=== PATIENT | male | born 1940 | race Hispanic/Latino ===

== ENCOUNTER 2018-09-23 16:23 | Inpatient (IN) | payer MEDICARE ==
[~2018-09-23] VITALS: Ht 165.1 cm; Wt 52.3 kg
--- OUTSIDE RECORDS SUMMARY | 2018-09-23 16:26 | XMS REPORT | Summary of Care ---
Author Author ANH PARSON M.D. Unknown Address [facility] Phone Unavailable Care Team Providers Care Color Checker Name Role Phone ANH PARSON M.D. 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 (444.22, I74.3) Status: Active Bed sore on heel, left, unstageable (707.07, L89.620) Status: Active 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, 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) Status: Active Hypercholesteremia (272.0, E78.00) Status: Active Medications Name Dates Details Carvedilol TABS Active Lasix TABS * Refills: 0 Active Meloxicam TABS * Refills: 0 Active metFORMIN HCl TABS * Refills: 0 Active Nitroglycerin SUBL * Refills: 0 Active [place] TABS * Refills: 0 Active [place] 3 CAPS * Refills: 0 Active Plavix TABS * Refills: 0 Active Potassimin TABS * Refills: 0 Active Requip XL TB24 * Refills: 0 Active Simvastatin TABS * Refills: 0 Active Testosterone Cypionate SOLN * Refills: 0 Active Tylenol with Codeine #3 TABS * Refills: 0 Active Allergies and Adverse Reactions Name Dates Details No Known Drug Allergies (Allergy) Status: Active Past Medical History Name Dates Details History of gout (V12.29, Z87.39) Status: Resolved History of hypertension (V12.59, Z86.79) Status: Resolved History of Postoperative examination (V67.00, Z09) Status: Resolved Past myocardial infarction (412, I25.2) Status: Resolved Procedures Procedure Dates Details CVRAD - AMOL - 29253 Date: 01-Sep-2018 History of Lower extremity amputation Completed History of Arterial angioplasty of lower extremity Completed History of Arterial angioplasty of lower extremity Completed History of Amputation Of Leg Below Knee Completed History of Foot Surgery Completed Immunization Name Dates Details Immunizations not documented Social History Name Dates Details - Status: Name Dates Details Former smoker Vital Signs Date Test Result Details No Known Vitals to report Results Date Description Value Details Results not documented Plan of Care Name Dates Details Planned Observations Planned Goals not documented Planned Encounters Appointment; ANH PARSON M.D. On: 13-Oct-2018 8:45 Interventions Provided Instructions* Patient Specific Education Given; Done: 01 Sep 2018 Plan* Reviewed the following results today: * LE Arterial Doppler (Dated 08/18/2018) * I evaluated Mr. Brothers today for a non-healing wound on the LLE. The left toe wound is showing improvement and I explained that the study shows he has good circulation with some small vessel disease. * Recommend that he F/U with his podiatry (set up appointment with Dr. Ross). * And, he can F/U with me in 6 weeks. Instructions Name Dates Details Instructions not documented Encounters Appointment; ANH PARSON M.D. Encounter Diagnosis: Problem not documented On: 08-Jun-2018 12:00 Appointment; ANH PARSON M.D. Encounter Diagnosis: Problem not documented On: 16-Jun-2018 14:15 Appointment; ANH PARSON M.D. Encounter Diagnosis: Problem not documented On: 07-Jul-2018 9:30 Appointment; ANH PARSON M.D. Encounter Diagnosis: Problem not documented On: 28-Jul-2018 10:30 Appointment; VASCULAR, SE Encounter Diagnosis: Problem not documented On: 01-Sep-2018 8:00 Appointment; ANH PARSON M.D. Encounter Diagnosis: Problem not documented On: 01-Sep-2018 9:00
--- NOTE | 2018-09-23 18:35 | NUR ---
PATIENT TO ROOM 4
[2018-09-23] MEDS ORDERED: SODIUM CHLORIDE 0.9% 250ML 250 ML IV ONE (18:45)
--- NOTE | 2018-09-23 19:26 | Diagnostic Imaging Report ---
A single frontal view of the chest. HISTORY: LOW H/H, blood transfusion COMPARISON: None available. DISCUSSION: Portable technique, limits sensitivity of the exam. Overlying monitoring leads. Additional overlying artifacts. Tubes/Lines: None Lungs and pleura: Low lung volumes result in bibasilar vascular crowding, accentuation of the pulmonary interstitial markings, central pulmonary vasculature, and the cardiac silhouette. Allowing for these limitations, the findings are as follows: Mild left basilar atelectasis versus scarring. No evidence of a consolidative pneumonia or pulmonary alveolar edema. No definite pleural effusion or pneumothorax is identified. Heart and mediastinum: The cardiomediastinal silhouette appears unremarkable. Bones and soft tissues: Appear unremarkable, given this limited exam. IMPRESSION: 1. Mild left basilar atelectasis versus scarring. 2. Otherwise, no acute radiographic abnormality. Signed by: Dr. Fernando Parry D.O., M.M.M. on 09/23/2018 7:23 PM
[2018-09-23] MEDS ORDERED: LEVOTHYROXINE50 MCG PO (20:07)
[2018-09-23] MEDS ORDERED: AMLODIPINE BESY10 MG PO (20:07)
[2018-09-23] MEDS ORDERED: FAMOTIDINE20 MG PO (20:07)
[2018-09-23] MEDS ORDERED: METOPROLOL TART25 MG PO (20:07)
[2018-09-23] MEDS ORDERED: CLONIDINE HCL0.1 MG PO (20:07)
[2018-09-23] MEDS ORDERED: HYDROCHLOROTHIA25 MG PO (20:07)
[2018-09-23] MEDS ORDERED: LEVOTHYROXINE0.5 GM (20:07)
[2018-09-23] MEDS ORDERED: VENLAFAXINE H37.5 M2 PO (20:07)
[2018-09-23 20:14] LABS: BASOPHILS % 0.3 % (0.0-1.0); EOSINOPHILS # (AUTO) 0.1 (0.0-0.4); HEMATOCRIT 23.9 % (38.2-49.6); LYMPHOCYTES # (AUTO) 2.3 (1.0-3.2); LYMPHOCYTES % 16.3 % (18.0-39.1); MEAN CORPUSCULAR HEMOGLOBIN 30.4 pg (28-32); MEAN CORPUSCULAR HGB CONC 33.5 g/dL (31-35); MEAN CORPUSCULAR VOLUME 90.9 fL (81-99); MONOCYTES % 7.4 % (4.4-11.3); NEUTROPHILS # (AUTO) 10.3 (2.1-6.9); NEUTROPHILS % 73.1 % (38.7-80.0); PLATELET COUNT 364 x10e3/uL (140-360); RED BLOOD COUNT 2.63 x10e6/uL (4.3-5.7)
[2018-09-23 20:25] LABS: INR 0.92; PROTHROMBIN TIME 12.9 seconds (11.9-14.5)
[2018-09-23 20:26] LABS: PARTIAL THROMBOPLASTIN TIME 26.8 seconds (23.8-35.5)
[2018-09-23 20:33] LABS: ALBUMIN 2.7 g/dL (3.5-5.0); ALBUMIN/GLOBULIN RATIO 0.6 (0.8-2.0); ANION GAP 14.3 mmol/L (8-16); CALCIUM 9.1 mg/dL (8.4-10.2); CREATININE, SERUM 1.8 mg/dL (0.72-1.25); MAGNESIUM 2.2 MG/DL (1.3-2.1); POTASSIUM 3.3 mmol/L (3.5-5.1)
[2018-09-23 20:39] LABS: CREATINE KINASE MB 0.7 ng/mL (0-5.0)
[2018-09-23 21:15] LABS: FERRITIN 995.05 ng/mL (21.81-274.66)
[2018-09-23] MEDS ORDERED: SODIUM CHLORIDE FLUSH 10 ML SYR INJ PRN (21:15)
[2018-09-23] MEDS ORDERED: ONDANSETRON HCL INJ 2MG/ML 2ML 2 MG/ML VIAL IV PRN (21:15)
[2018-09-23 21:18] LABS: FOLATE 11.1 ng/mL (7.0-15.4)
--- OUTSIDE RECORDS SUMMARY | 2018-09-23 21:32 | XMS REPORT ---
Author Author [facility] Address Unknown Phone Unavailable Care Team Providers Care Biochemistry Teacher Name Role Phone Hakeem PALENCIA Unavailable Unavailable Problems This patient has no known problems. Allergies, Adverse Reactions, Alerts This patient has no known allergies or adverse reactions. Medications This patient has no known medications. Results Test Description Test Time Test Comments Text Results Atomic Results Result Comments CHEST SINGLE (PORTABLE) 2018-09-23 19:21:00 [place] [address] Patient Name: MARILUZ [place] MR #: [id number] : 1940 Age/Sex: 78/M Req #: [id number] Adm Physician: Ordered by: KEVLIN PALENCIA MD Report #: [id number] Location: ER Room/Bed: Procedure: [id number] DX/CHEST SINGLE (PORTABLE) Exam Date: 09/23/18 Exam Time: 1905 REPORT STATUS: Signed A single frontal view of the chest. HISTORY: LOW H/H, blood transfusion COMPARISON: None available. DISCUSSION: Portable technique, limits sensitivity of the exam. Overlying monitoring leads. Additional overlying artifacts. Tubes/Lines: None Lungs and pleura: Low lung volumes result in bibasilar vascular crowding, accentuation of the pulmonary interstitial markings, central pulmonary vasculature, and the cardiac silhouette. Allowing for these limitations, the findings are as follows: Mild left basilar atelectasis versus scarring. No evidence of a consolidative pneumonia or pulmonary alveolar edema. No definite pleural effusion or pneumothorax is identified. Heart and mediastinum: The cardiomediastinal silhouette appears unremarkable. Bones and soft tissues: Appear unremarkable, given this limited exam. IMPRESSION: 1. Mild left basilar atelectasis versus scarring. 2. Otherwise, no acute radiographic abnormality. Signed by: Dr. Porter Parry D.O., M.M.M. on 09/23/2018 7:23 PM Dictated By: PORTER PARRY DO 22 Transcribed By: HECTOR on 09/23/181922 COPY TO: KELVIN PALENCIA MD
--- NOTE | 2018-09-23 22:30 | NUR ---
Patient transferred from ER via stretcher. Patient is A&Ox4, respirations even & unlabored, no distress noted. Patient has R BKA. R AC 20g SL, patent & no infiltration noted. Reminded patient NPO status after midnight, voiced understanding. Stage II pressure ulcer noted to sacrum. Wound care consult placed. Patient has an ulcer to left 5th toe. Call light within reach, side railsx2 raised & bed set to lowest position.
[2018-09-23 22:35] LABS: CLARITY,URINE CLEAR (CLEAR); COLOR,URINE STRAW (YELLOW)
[2018-09-23 22:36] LABS: BILIRUBIN,URINE NEGATIVE (NEGATIVE); KETONES,URINE NEGATIVE (NEGATIVE); LEUKOCYTE ESTERASE ,URINE NEGATIVE (NEGATIVE); NITRITE,URINE NEGATIVE (NEGATIVE); PROTEIN,URINE DIPSTICK 1+ (NEGATIVE); URINE UROBILINOGEN 0.2 mg/dL (0.2 - 1)
[2018-09-23 23:00] VITALS: BP 145/67
[2018-09-23 23:17] LABS: BACTERIA,URINE RARE /HPF; EPITHELIAL CELLS,URINE RARE /LPF; RBC,URINE 0-5 /HPF (0-5)
[2018-09-23] MEDS ORDERED: SODIUM CHLORIDE 0.9% 250ML 250 ML ONE (23:40)
[2018-09-24] VITALS (9 sets, daily range): BP systolic 137–163; BP diastolic 64–81
[2018-09-24] MEDS: FUROSEMIDE INJ 10 MG/ML 2 ML VIAL IV PRN ×2 (03:00→06:50)
[2018-09-24] MEDS ORDERED: SODIUM CHLORIDE 0.9% 250ML 250 ML ONE (03:22)
--- NOTE | 2018-09-24 03:30 | NUR ---
Patient had large watery BM Addendum: 09/25/18 at 0644 by MIKKI ZURITA RN Please omit, made in error
--- NOTE | 2018-09-24 06:31 | NUR ---
H&P PCP: Nii Bruce MD cc; fatigue HPI: 78yoM, with hx of anemia requiring transfusion, now with Hb 7.2 in clinic, sent to hospital for transfusion and workup. Pt states that he has been having melena. PMH: HTN, hypothyroidism, Mood d/o, CKD3 PShx: right BKA allergies; see emr FH/SH; ; sister involved in care; meds; see MAR ROS: no f/c/s/N/v/D/BATRES/vision changes/skin rash/back pain v/s; revd P:E tired appearing anicteric ns1s2 mod bs soft nt nd right BKA well healed; left foot 5th digit ulcer-healing skin dry flat affect alert; oriented x2 labs/med; revd A/P: 78yoM Iron deficiency anemia Vit B12 deficiency Hypokalemima Metabolic acidosis CKD3 HTn Hypothyroidism Foot ulcer- left foot 5th digit PLAN iron replacement; B12 replacement GI consult; IV PPI podiatry consult Renal U/S. SCd Nii Bruce MD, PhD
[2018-09-24] MEDS: LEVOTHYROXINE SODIUM 50 MCG TAB PO SCH (07:00)
[2018-09-24] MEDS: FERROUS SULFATE 325 MG TAB PO SCH ×2 (08:00→17:05)
[2018-09-24] MEDS: AMLODIPINE BESYLATE 10 MG TAB PO SCH (09:00)
[2018-09-24] MEDS: VENLAFAXINE HCL 37.5MG XR CAP PO SCH ×2 (09:00→17:05)
[2018-09-24] MEDS: METOPROLOL TARTRATE 25 MG TAB PO SCH ×2 (09:00→17:05)
[2018-09-24] MEDS: CLONIDINE HCL 0.1 MG TAB PO SCH ×4 (09:00→21:08)
[2018-09-24] MEDS: CYANOCOBALAMIN 1,000 MCG TAB PO SCH (09:00)
--- NOTE | 2018-09-24 09:34 | NUR ---
PAGED DR. MORE AT THIS TIME REGARDING NEW CONSULT. REQUESTED CALL BACK FOR DIET ORDERS. AWAITING CALL BACK.
[2018-09-24] MEDS: PANTOPRAZOLE 40 MG 10ML VIAL IV SCH (10:01)
--- NOTE | 2018-09-24 10:11 | Diagnostic Imaging Report ---
EXAMINATION: Renal ultrasound. CLINICAL HISTORY :Chronic kidney disease COMPARISON: <None available.> TECHNIQUE: Grayscale and color Doppler evaluation of the kidneys and bladder was performed in transverse and longitudinal planes. DISCUSSION: RIGHT KIDNEY: The right kidney measures 8.7 cm in length and shows normal renal cortical echogenicity. No hydronephrosis, shadowing calculi or solid mass lesions. LEFT KIDNEY: The left kidney measures 8.5 cm in length and shows normal renal cortical echogenicity. No hydronephrosis, shadowing calculi or solid mass lesions. Exophytic simple cyst projects from the lower pole and measures 1.2 x 1 x 1.2 cm. BLADDER: Unremarkable. Right and left ureteral jets are identified. IMPRESSION: Benign simple left renal cyst. Otherwise unremarkable sonographic appearance of the kidneys. Signed by: Dr. Alex Denny M.D. on 09/24/2018 10:08 AM
[2018-09-24] MEDS ORDERED: PEG (High)/E-LYTE SOLN 4,000 ML BTL PO NR (12:00)
--- NOTE | 2018-09-24 13:14 | NUR ---
NOTIFIED DR. LEZAMA REGARDING PT CAREGIVER REFUSING ANY CARE DONE TO LEFT 5TH DIGIT FOOT ULCER. CAREGIVER STATES SHE HAS BEEN TAUGHT HOW TO DO DRESSING CHANGES AND SHE WILL TAKE CARE OF IT. SHE STATES SHE DOES NOT WANT ANY NEW DOCTORS TO CHANGE MEDICATIONS THAT ARE APPLIED TO IT. SHE IS AFRAID THE PT WILL NEED AMPUTATION IF CHANGES ARE MADE. PER DR. TEJA KEANECEL CONSULT FOR DR. GONSALES. SPOKE TO DR. GONSALES TO NOTIFY CANCELATION BUT HE STATES HE STILL WOULD LIKE TO SEE THE PT AND SPEAK WITH THE CAREGIVER TO ADDRESS ANY WORRIES THEY MAY HAVE. PER DR. GONSALES HE WILL SEE PT LATER TODAY AND SPEAK TO CAREGIVER.
[2018-09-24 14:03] LABS: HEMATOCRIT 29.9 % (38.2-49.6); HEMOGLOBIN 10.5 g/dL (14.0-18.0)
--- NOTE | 2018-09-24 14:24 | NUR ---
WOUND CARE CONSULTATION: INITIAL EVALUATION Patient admitted from home to ER for HGB of 7. HX: Hypotension LABS: WBC:14.3 HCT23.9 TBG226 ALB2.7 WC Consulted for evaluation of sacral ulcer. PATIENT VISIT: Patient Luxembourgish speaking, family members at bedside. Diapered. HX: Right BKA Left foot dressing in place. CDI performed by family. Family refused assessment of foot ulcers. States to be treating with Santyl daily and is being cared for at [facility] outpatient wound care center. States patient did not admit for foot ulcer management and they would prefer to continue caring for ulcer. Education provided but still preferred to continue taking care of ulcers on their own. Sacral area- family okay to assess area for ulcers. No Pressure Ulcers noted. Old scar tissue present with blanchable erythema. No Open Skin Noted. Sherman Score 15 Moderate PUP Active Visco Mattress in Place Discussed patient care at length with family for pressure ulcer prevention, approximately 30 minutes spent. IMPRESSION: 1. Sacral- Blanchable Erythema( No open skin) 2. Left Foot Ulcer - Unable to Assess. Deferred Assessment per family request. RECOMMENDATION: 1. Sacral- Blanchable Erythema( No open skin) - Cleanse area with mild soap and water then pat dry thoroughly - Apply Dean Cream then cover with Allevyn Foam Sacrum Dressing q12h and PRN Soiling 2. Alternating Pressure Air Mattress and set to patient current weight. 3. Left Foot Heel protector while in bed. 4. Turn and reposition every 2 hours using turning schedule clock. 5. Continue Moderate PUP Thank you for Consulting with Wound Care. Addendum: 09/24/18 at 1435 by Dillon Rosen RN Amended: Links added.
[2018-09-24] MEDS: ZINC OXIDE / BALSAM PERU 30 GM TUBE TOP SCH ×2 (14:45→21:09)
--- NOTE | 2018-09-24 16:05 | Consultation ---
DATE OF CONSULTATION: Gastroenterology Consultation REASON FOR CONSULTATION: Anemia. HISTORY OF PRESENT ILLNESS: Mr. Brothers is a 78-year-old gentleman with below past medical history. He comes in with weakness and significant anemia. He also has leukocytosis. His iron studies are consistent with a mixed picture of anemia of iron deficiency and chronic disease. He and his family deny any overt bleeding. He has been quite debilitated since his lower extremity amputation earlier this year. He denies any abdominal pain. He has had no nausea or vomiting. He does eat at home. He is primarily dependent, but does take care of him. PAST MEDICAL HISTORY: Hypertension, chronic kidney disease, peripheral arterial disease, status post right BKA. MEDICATIONS: Reviewed, please see [facility] medication reconciliation form. ALLERGIES: REVIEWED, PLEASE SEE [facility] MEDICATION RECONCILIATION FORM. SOCIAL HISTORY: No tobacco, alcohol, or illicit substances. He lives with family and is dependent. FAMILY HISTORY: Positive for hypertension, diabetes, and coronary artery disease. REVIEW OF SYSTEMS: From the patient is not obtainable due to his baseline mental status; however, they deny any other acute complaints. PHYSICAL EXAMINATION: GENERAL: He is alert, lying in bed, in no acute distress. HEENT: Pupils are equal, round, and reactive to light. He is anicteric. He has pterygium. He had pale conjunctiva. NECK: Supple. LUNGS: Clear. CARDIOVASCULAR: S1, S2. ABDOMEN: Soft, nontender, nondistended with normal bowel sounds. EXTREMITIES: No clubbing, cyanosis, or edema. He has right BKA as mentioned. PSYCH: Calm, cooperative. NEUROLOGIC: Alert. Electronic health records reviewed for laboratory and radiologic studies as well as history. ASSESSMENT: 1. Anemia, multifactorial, related to iron deficiency as well as chronic disease. 2. Debilitation and recent amputation. PLAN: At the current time, I have offered them EGD and colonoscopy. Per family, it seems he has not had this before in the past. I would recommend he undergo EGD and colonoscopy tomorrow. He will require a prep for this. Thank you very much for asking me to see Mr. Brothers. Any questions or concerns, please do not hesitate to contact me. Rosie Wagoner MD RLS/MODL /[id number] CHRISTINA
--- NOTE | 2018-09-24 17:12 | NUR ---
ATTEMPTED TO HAVE PT SIGN CONSENT FOR EGD AND COLONOSCOPY AT THIS TIME BUT PT REFUSED. STATES HE DOES NOT WANT TO DO IT RIGHT NOW HE WILL SIGN IT LATER.
--- NOTE | 2018-09-24 18:33 | NUR ---
PT HAD FIRST BM AFTER STARTING GOLYTELY. LARGE, BROWN, LIQUID BM. PT GIVEN BED BATH AND LINENS CHANGED AT THIS TIME.
--- NOTE | 2018-09-24 19:15 | NUR ---
Rounding done and report received. Patient is asleep, is at bedside. Respirations even & unlabored and no distress noted. Side rails x2 raised, call light within reach, bed alarm in place & bed set to lowest position.
--- NOTE | 2018-09-24 20:00 | NUR ---
Patient had large soft BM
[2018-09-25] VITALS (8 sets, daily range): BP systolic 112–137; BP diastolic 57–64
--- NOTE | 2018-09-25 00:57 | Consultation ---
DATE OF CONSULTATION: 09/24/2018 REASON FOR CONSULTATION: Ulceration of the left 5th digit with patient having history of peripheral arterial disease. HISTORY OF PRESENT ILLNESS: This is a 78-year-old male, who was seen at bedside accompanied by spouse, who relates that they have had a nonhealing ulceration for several months, now underwent a right [id number] amputation back in May secondary to gangrenous changes. Currently, he is denying any history of fever, chills, nausea, or vomiting, was admitted for anemia and to get couple units of blood. PAST MEDICAL HISTORY: Remarkable for peripheral arterial disease, hypertension, and chronic kidney disease. CURRENT MEDICATIONS: Note listed in chart. ALLERGIES: THE PATIENT DENIES. SOCIAL HISTORY: He used to be a heavy smoker. No alcohol or illicit drugs. Lives with his , has one kid and is being taken care of by his sister. FAMILY HISTORY: Remarkable for diabetes, coronary artery disease, and hypertension. REVIEW OF SYSTEMS: CARDIAC: Denies any palpitations or arrhythmias. RESPIRATORY: Denies any shortness of breath or productive cough. GASTROINTESTINAL: Denies any diarrhea or constipation. PODIATRIC PHYSICAL EXAMINATION: VITAL SIGNS: Afebrile. Pulse rate 73, respirations 17, blood pressure 163/80, and O2 saturation 99%. VASCULATURE: Pedal pulses of both the DP and the PT of the left lower extremity is barely to nonpalpable. Skin temperature is warm and cool to touch. NEUROLOGICAL: Reveals some loss of protective sensation when utilizing Sterling-Jennifer 5% monofilament wire. MUSCULOSKELETAL: Shows muscle wasting. Muscle strength to be 3 to 4/5 to all muscle groups left foot. Has a grade 2 ulceration plantar aspect left 5th toe measuring 1 to 1.5 cm in diameter with a necrotic scab falling off. LABORATORY DATA: Noted a white blood cell count of 14.1, hemoglobin 8.0, going up to 10.5 after 2 units of blood were given, hematocrit 29.9, has a platelet count of 364. ASSESSMENT: Grade 2 ulcer with peripheral arterial disease. PLAN: We will start Santyl collagenase followed by light dry dressing. Continue offloading as best as possible. The patient's instructed she needs to offload to prevent any future necoy-[id number] amputation secondary to his very poor circulatory status. EDNA Martin/MODL /[id number]
--- NOTE | 2018-09-25 03:30 | NUR ---
Patient had large brown watery BM
--- NOTE | 2018-09-25 05:47 | NUR ---
Patient had large brown watery stool, bed bath provided and linen changed
[2018-09-25] MEDS: LEVOTHYROXINE SODIUM 50 MCG TAB PO SCH (05:49)
--- NOTE | 2018-09-25 07:16 | NUR ---
Rcvd patient in report this am. Patient is asleep in bed at this time. Family at bedside. Patient is NPO for egd/colon today.
[2018-09-25] MEDS: FERROUS SULFATE 325 MG TAB PO SCH ×2 (08:00→17:10)
[2018-09-25] MEDS: CLONIDINE HCL 0.1 MG TAB PO SCH ×4 (08:37→21:12)
[2018-09-25] MEDS: PANTOPRAZOLE 40 MG 10ML VIAL IV SCH (08:37)
[2018-09-25] MEDS: VENLAFAXINE HCL 37.5MG XR CAP PO SCH ×2 (08:37→17:10)
[2018-09-25] MEDS: CYANOCOBALAMIN 1,000 MCG TAB PO SCH (08:38)
[2018-09-25] MEDS: METOPROLOL TARTRATE 25 MG TAB PO SCH ×2 (08:38→17:11)
[2018-09-25] MEDS: AMLODIPINE BESYLATE 10 MG TAB PO SCH (08:38)
--- NOTE | 2018-09-25 09:45 | NUR ---
Patient is AAOx3. Syriac speaking only. Patient is NPo at this time for a procedure today. Lung lehman clear to auscultation. Bowel sounds present x4. No edema noted. Right BKA noted. Left foot wound dressing intact. Patient and family refuses for staff to remove dressing or assess. Right AC IV in place. Loose stool noted. No s/s of distress noted
[2018-09-25 10:59] LABS: BASOPHILS % 0.4 % (0.0-1.0); EOSINOPHILS # (AUTO) 0.1 (0.0-0.4); EOSINOPHILS % 0.7 % (0.0-6.0); HEMATOCRIT 29.3 % (38.2-49.6); HEMOGLOBIN 10.4 g/dL (14.0-18.0); LYMPHOCYTES # (AUTO) 1.7 (1.0-3.2); LYMPHOCYTES % 19.1 % (18.0-39.1); MEAN CORPUSCULAR HEMOGLOBIN 30.7 pg (28-32); MEAN CORPUSCULAR HGB CONC 35.5 g/dL (31-35); MEAN CORPUSCULAR VOLUME 86.4 fL (81-99); MONOCYTES # (AUTO) 0.6 (0.2-0.8); MONOCYTES % 6.5 % (4.4-11.3); NEUTROPHILS # (AUTO) 6.5 (2.1-6.9); NEUTROPHILS % 72.4 % (38.7-80.0); PLATELET COUNT 274 x10e3/uL (140-360); RED BLOOD COUNT 3.39 x10e6/uL (4.3-5.7); RED CELL DISTRIBUTION WIDTH 15.6 % (11.7-14.4)
[2018-09-25 11:21] LABS: ANION GAP 16.9 mmol/L (8-16); CALCIUM 9.7 mg/dL (8.4-10.2); CREATININE, SERUM 1.72 mg/dL (0.72-1.25)
[2018-09-25 11:22] LABS: POTASSIUM 2.9 mmol/L (3.5-5.1)
[2018-09-25] MEDS ORDERED: POTASSIUM CHLORIDE 20MEQ/100ML 200 ML IV ONE (11:30)
[2018-09-25] MEDS ORDERED: SODIUM CHLORIDE 0.9% 500ML 500 ML ONE (11:32)
[2018-09-25] MEDS ORDERED: POTASSIUM CHLORIDE 20MEQ/100ML 100 ML ONE (11:32)
--- NOTE | 2018-09-25 11:36 | NUR ---
Patient went to [facility] at this time. Call placed to Dr. Bruce regarding low potassium level. Call placed to OR to inform. Potassium started before patient went to OR per Or charge nurse request
[2018-09-25] MEDS ORDERED: PROPOFOL IV EMULSION 10 MG/ML 20 ML VIAL ONE ×2 (12:38→17:18)
--- NOTE | 2018-09-25 13:55 | NUR ---
Patient returned from [facility] at this time. Patient is awake and alert. Spouse at bedside. No bleeding noted. NO s/s of distress noted
[2018-09-25] MEDS: ZINC OXIDE / BALSAM PERU 30 GM TUBE TOP SCH (14:45)
[2018-09-25] MEDS ORDERED: LIDOCAINE HCL 2% LOCAL INJ 5 ML SDV VIAL INJ ONE (17:18)
--- NOTE | 2018-09-25 17:27 | NUR ---
IMM SIGNED BY PT'S AND ON CHART COPY TO PT IN CARE TRANSITIONS FOLDER
[2018-09-25] MEDS ORDERED: FENTANYL CITRATE/PF 100MCG/2 ML INJ ONE (17:34)
[2018-09-26] VITALS: BP 155/70
[2018-09-26] MEDS: ZINC OXIDE / BALSAM PERU 30 GM TUBE TOP SCH ×2 (02:45→14:54)
[2018-09-26 04:00] VITALS: BP 175/78
[2018-09-26] MEDS: LEVOTHYROXINE SODIUM 50 MCG TAB PO SCH (05:34)
[2018-09-26 05:39] LABS: BASOPHILS # (AUTO) 0.1 (0.0-0.1); BASOPHILS % 0.7 % (0.0-1.0); EOSINOPHILS # (AUTO) 0.1 (0.0-0.4); EOSINOPHILS % 1.1 % (0.0-6.0); HEMATOCRIT 29.7 % (38.2-49.6); HEMOGLOBIN 9.9 g/dL (14.0-18.0); LYMPHOCYTES # (AUTO) 1.9 (1.0-3.2); LYMPHOCYTES % 19.7 % (18.0-39.1); MEAN CORPUSCULAR HEMOGLOBIN 29.9 pg (28-32); MEAN CORPUSCULAR HGB CONC 33.3 g/dL (31-35); MEAN CORPUSCULAR VOLUME 89.7 fL (81-99); MONOCYTES # (AUTO) 0.8 (0.2-0.8); MONOCYTES % 8.3 % (4.4-11.3); NEUTROPHILS # (AUTO) 6.6 (2.1-6.9); NEUTROPHILS % 69.3 % (38.7-80.0); PLATELET COUNT 256 x10e3/uL (140-360); RED BLOOD COUNT 3.31 x10e6/uL (4.3-5.7); RED CELL DISTRIBUTION WIDTH 15.3 % (11.7-14.4)
[2018-09-26 06:10] LABS: ALBUMIN 2.5 g/dL (3.5-5.0); ALBUMIN/GLOBULIN RATIO 0.7 (0.8-2.0); ANION GAP 12.2 mmol/L (8-16); CALCIUM 8.1 mg/dL (8.4-10.2); CREATININE, SERUM 1.72 mg/dL (0.72-1.25); POTASSIUM 3.2 mmol/L (3.5-5.1)
--- NOTE | 2018-09-26 07:00 | NUR ---
Rcvd patient in report this am. Patient is asleep in bed at this time. Family at bedside
--- NOTE | 2018-09-26 07:45 | NUR ---
Call placed to Dr. Bruce to inform of low potassium level of 3.2. Awaiting call back
[2018-09-26 08:03] VITALS: BP 154/69
[2018-09-26] MEDS: VENLAFAXINE HCL 37.5MG XR CAP PO SCH ×2 (08:05→16:33)
[2018-09-26] MEDS: PANTOPRAZOLE 40 MG 10ML VIAL IV SCH (08:05)
[2018-09-26] MEDS: FERROUS SULFATE 325 MG TAB PO SCH ×2 (08:05→16:33)
[2018-09-26] MEDS: AMLODIPINE BESYLATE 10 MG TAB PO SCH (08:05)
[2018-09-26] MEDS: METOPROLOL TARTRATE 25 MG TAB PO SCH ×2 (08:06→16:33)
[2018-09-26] MEDS: CLONIDINE HCL 0.1 MG TAB PO SCH ×3 (08:06→16:34)
[2018-09-26 08:40] VITALS: BP 154/69
[2018-09-26] MEDS ORDERED: CYANOCOBALAMIN INJ 1,000 MCG/ML VIAL IM SCH (09:00)
--- NOTE | 2018-09-26 09:46 | NUR ---
Patient is AAOx3. English speaking only. Lung lehman clear to auscultation. Bowel sounds present x4. No bleeding noted. Right BKA noted. Left foot wound present. Family does dressing changes. Last night wound was assessed and noted to be necrotic in a small area. No drainage noted. Dressing clean and dry today. No c/o pain. Right AC Iv in place
[2018-09-26] MEDS ORDERED: FERROUS SULFAT325 MG PO (11:44)
[2018-09-26] MEDS ORDERED: VITAMIN B-121000 MCG PO (11:44)
[2018-09-26] MEDS ORDERED: PANTOPRAZOLE SO40 MG PO (11:50)
--- NOTE | 2018-09-26 11:50 | NUR ---
Discharge summary: Principal dx: Iron deficiency anemia Vit B12 deficiency Hypokalemima Gastritis Hiatal hernia Proctitis Metabolic acidosis Secondary Dx: CKD3 HTn Hypothyroidism Foot ulcer- left foot 5th digit PLAN iron replacement; B12 replacement GI consult; IV PPI podiatry consult Renal U/S. SCd d/c home f/u pcp 1 week, GI 2 weeks, 1 week stable d/c>35mins Nii Bruce MD, PhD
[2018-09-26] MEDS ORDERED: POTASSIUM CHLORIDE 20 MEQ TAB CR PO ONE (11:51)
[2018-09-26 12:30] VITALS: BP 113/57
[2018-09-26 16:36] VITALS: BP 123/60
--- NOTE | 2018-09-26 17:47 | NUR ---
Removed 2 IV's from right arm. Pressure dressing applied.
--- NOTE | 2018-09-26 17:47 | NUR ---
Patient discharged from facility to home. Patient assisted out via staff and wheelchair. Reviewed all discharge paperwork, follow up appts and RX's given. Spoke with spouse and other family members. Verbalized understanding
== END 2018-09-26 17:54 | disposition home or self-care (01) | DRG 812 ==
LOC: ER 16:23 → ERHOLD 21:30 → MED/SURG 22:24
PROVIDERS: ADMIT Internal Medicine; ATTEND Internal Medicine
PROC: 30233N1 Transfusion of Nonautologous Red Blood Cells into Peripheral Vein, Percutaneous Approach (ICD-10-PCS; 2018-09-23)
PROC: 0DB78ZX Excision of Stomach, Pylorus, Via Natural or Artificial Opening Endoscopic, Diagnostic (ICD-10-PCS; 2018-09-25)
PROC: 0DBP8ZX Excision of Rectum, Via Natural or Artificial Opening Endoscopic, Diagnostic (ICD-10-PCS; principal; 2018-09-25 12:00)
PROC: 0DB38ZX Excision of Lower Esophagus, Via Natural or Artificial Opening Endoscopic, Diagnostic (ICD-10-PCS; 2018-09-25 12:00)
DX: D50.0 Iron deficiency anemia secondary to blood loss (chronic) (principal); E87.1 Hypo-osmolality and hyponatremia; E87.2 Acidosis; E87.6 Hypokalemia; D72.829 Elevated white blood cell count, unspecified; R53.81 Other malaise; I12.9 Hypertensive chronic kidney disease with stage 1 through stage 4 chronic kidney disease, or unspecified chronic kidney disease; I73.9 Peripheral vascular disease, unspecified; Z89.511 Acquired absence of right leg below knee; Z87.891 Personal history of nicotine dependence; Z83.3 Family history of diabetes mellitus; Z82.49 Family history of ischemic heart disease and other diseases of the circulatory system; L97.529 Non-pressure chronic ulcer of other part of left foot with unspecified severity; K62.89 Other specified diseases of anus and rectum; K64.4 Residual hemorrhoidal skin tags; E03.9 Hypothyroidism, unspecified; K21.0 Gastro-esophageal reflux disease with esophagitis; K29.70 Gastritis, unspecified, without bleeding; N18.3 Chronic kidney disease, stage 3 (moderate); F39 Unspecified mood [affective] disorder; E53.8 Deficiency of other specified B group vitamins
CPT/HCPCS: 36415; 43239; 45380; 71045; 76770; 80048; 80053; 81001; 82550; 82553; 82607; 82728; 82746; 82948; 83540; 83735; 84466; 84484; 85014; 85018; 85025; 85610; 85730; 86850; 86900; 86920; 88305; 88312; 93005; 99284; J1940; J2001; J3420; J3480; J7040; J7050; P9016

== ENCOUNTER 2021-07-16 12:15 | Emergency (ER) | payer MEDICARE ==
[~2021-07-16] VITALS: Ht 165.1 cm; Wt 52.2 kg
[~2021-07-16 12:15] MED LIST: AMLODIPINE BESY10 MG PO; CLONIDINE HCL0.1 MG PO; FAMOTIDINE20 MG PO; FERROUS SULFAT325 MG PO; HYDROCHLOROTHIA25 MG PO; LEVOTHYROXINE0.5 GM; LEVOTHYROXINE50 MCG PO; METOPROLOL TART25 MG PO; PANTOPRAZOLE SO40 MG PO; VENLAFAXINE H37.5 M2 PO; VITAMIN B-121000 MCG PO
[2021-07-16] MEDS ORDERED: HYDRALAZINE HCL 20 MG/ML VIAL IV PRN (13:00)
[2021-07-16 13:14] LABS: BASOPHILS % 0.4 % (0.0-1.0); EOSINOPHILS # (AUTO) 0.2 (0.0-0.4); EOSINOPHILS % 1.7 % (0.0-6.0); HEMATOCRIT 33.1 % (38.2-49.6); HEMOGLOBIN 10.7 g/dL (14.0-18.0); LYMPHOCYTES % 10.2 % (18.0-39.1); MEAN CORPUSCULAR HEMOGLOBIN 30.4 pg (28-32); MEAN CORPUSCULAR HGB CONC 32.3 g/dL (31-35); MONOCYTES # (AUTO) 0.6 (0.2-0.8); MONOCYTES % 6.5 % (4.4-11.3); NEUTROPHILS # (AUTO) 7.7 (2.1-6.9); NEUTROPHILS % 80.6 % (38.7-80.0); PLATELET COUNT 175 x10e3/uL (140-360); RED BLOOD COUNT 3.52 x10e6/uL (4.3-5.7); RED CELL DISTRIBUTION WIDTH 14.3 % (11.7-14.4)
[2021-07-16 13:34] LABS: ALBUMIN 3.2 g/dL (3.5-5.0); ALBUMIN/GLOBULIN RATIO 0.8 (0.8-2.0); CREATININE, SERUM 1.4 mg/dL (0.72-1.25)
[2021-07-16] MEDS ORDERED: AMLODIPINE BESYLATE 10 MG TAB PO ONE (13:45)
[2021-07-16] MEDS ORDERED: NORVASC10 MG PO (14:20)
== END 2021-07-16 14:41 | disposition home or self-care (01) ==
LOC: ER 12:25
DX: I10 Essential (primary) hypertension (principal); N18.9 Chronic kidney disease, unspecified; Z89.511 Acquired absence of right leg below knee
CPT/HCPCS: 36415; 71045; 80053; 84484; 85025; 93005; 99284; J0360